=== PATIENT | female | born 1940 | race Caucasian/White ===

== ENCOUNTER 2017-08-24 12:16 | Emergency (ER) | payer OTHER ==
[~2017-08-24] VITALS: Ht 154.9 cm; Wt 55.7 kg
[~2017-08-24 12:16] MED LIST: ADVAIR 250/501 DISK IH; ATIVAN1 M1 PO; AURALGAN14.8 ML BOTH EARS; Advair HFA 115/21 IH; Atarax,Vistaril PO; Ativan PO; COGENTIN0.5 MG PO; CORTISPORIN OTI10 ML BOTH EARS; DESYREL100 MG PO; DOXEPIN HCL25 MG PO; FLEXERIL5 MG PO; Flexeril PO; HALDOL2 MG PO; HYDROXYZINE HCL25 M1 PO; HYDROXYZINE HCL25 MG PO; INVEGA1.5 MG PO; LITHOBID300 MG PO; LORAZEPAM0.5 MG PO; Levothroid,Synthroid PO; Macrodantin PO; PREDNISONE50 MG PO; PriLOSEC PO; RISPERDAL1 MG PO; RISPERDAL2 MG PO; SYNTHROID88 MCG PO; Senokot,Sennagen PO; TRILAFON8 M1 PO; ULTRAM50 MG PO; Vigamox 0.5% Ophth S BOTH EYES; XOPENEX0.31 MG/3 IH; XOPENEX0.63 MG/3 IH; XOPENEX1.25 MG/0. IH
[2017-08-24 16:14] LABS: BASOPHIL COUNT 0.1 K/uL (0-0.1); EOSINOPHIL (%) 1.4 % (0-5); EOSINOPHIL COUNT 0.1 K/uL (0-0.3); HEMATOCRIT 44.4 % (36.0-46.0); IMMATURE GRANULOCYTE (%) 0.4 % (0.0-0.7); INSTRUMENT ABS NEUTROPHIL CT 3.3 K/uL; LYMPHOCYTE COUNT 1.6 K/uL (1.0-2.8); MCH 30.7 PG (29.0-34.0); MCHC 33.6 G/DL (30.0-36.0); MCV 91.4 FL (83-99); MEAN PLAT.VOLUME 8.9 uM^3 (9.5-12.4); MONOCYTE (%) 9.5 % (3-12); MONOCYTE COUNT 0.5 K/uL (0-0.8); NEUTROPHIL (%) 59.4 % (45-76); NEUTROPHIL COUNT 3.3 K/uL (1.8-6.4); PLATELET COUNT 260 K/uL (156-360); RBC DIS.WIDTH-CV 12.2 % (11.8-14.6); RBC DIS.WIDTH-SD 40.7 % (39-53); RED BLOOD COUNT 4.86 M/uL (3.80-5.20); WHITE BLOOD COUNT 5.6 K/uL (4.1-10.2)
[2017-08-24 16:25] LABS: CHLORIDE 100 mEq/L (99-109); POTASSIUM 3.9 mEq/L (3.7-5.4); SODIUM 138 mEq/L (136-147)
[2017-08-24 16:27] LABS: GLUCOSE 97 mg/dL (70-99)
[2017-08-24 16:29] LABS: ANION GAP 13 MEQ/L (2-14); TOTAL BILIRUBIN 0.9 mg/dL (0.0-1.0)
[2017-08-24 16:31] LABS: ALKALINE PHOSPHATASE 69 IU/L (3-129); GFR ESTIMATE (CALCULATED) > 59 mL/min/
[2017-08-24 16:32] LABS: UREA NITROGEN (BUN) 6 mg/dL (9-23)
[2017-08-24 16:33] LABS: DIRECT BILIRUBIN 0.2 mg/dL (0.0-0.3)
[2017-08-24 16:34] LABS: LIPASE 14 U/L (1.0-51.0)
[2017-08-24 16:35] LABS: ADD MIUA? NO; BILIRUBIN NEGATIVE; BLOOD NEGATIVE; COLOR STRAW ((YELLOW)); GLUCOSE (STRIP) NEGATIVE; KETONES NEGATIVE; LEUKOCYTES NEGATIVE; NITRITE NEGATIVE; PROTEIN (STRIP) NEGATIVE; SPECIFIC GRAVITY 1.003 (1.000-1.030); UROBILINOGEN 0.2 MG/DL (0.2-1.0)
[2017-08-24] MEDS ORDERED: CARAFATE100 MG/ML PO (19:03)
[2017-08-24] MEDS ORDERED: ZANTAC300 MG PO (19:03)
[2017-08-24 20:06] VITALS: BP 126/84
== END 2017-08-24 20:07 | disposition home or self-care (01) ==
LOC: EME 12:16
PROVIDERS: Physician Assistant
DX: R10.13 Epigastric pain (principal); F31.9 Bipolar disorder, unspecified; F25.0 Schizoaffective disorder, bipolar type; T43.596A Underdosing of other antipsychotics and neuroleptics, initial encounter; Z91.14 Patient's other noncompliance with medication regimen; Z91.19 Patient's noncompliance with other medical treatment and regimen; Z88.0 Allergy status to penicillin; Z88.2 Allergy status to sulfonamides
CPT/HCPCS: 74022; 80048; 80076; 81003; 83690; 85025; 90839; 93005; 99281; 99285; J2060; S0028